=== PATIENT | female | born 1950 | race Caucasian/White ===

== ENCOUNTER 2022-03-15 10:42 | Emergency (ER) | payer MEDICARE, SELFPAY ==
[2022-03-15 10:52] VITALS: BP 177/94; PULSE 78; RESP 16; TEMP 36.7; O2SAT 95; BMI 28.3
[2022-03-15 11:00] VITALS: BP 158/91; PULSE 82; RESP 16; O2SAT 96
--- NOTE | 2022-03-15 11:11 | ED_ITS ---
HPI - Nausea/Vomiting/Diarrhea General Chief complaint: Diarrhea Stated complaint: diarrhea for 12 day Time Seen by Provider: 03/15/22 10:52 History of Present Illness HPI Narrative: This 71-year-old female comes in reporting diarrhea for the past 12 days. She states that she ate some [place] food and has had diarrhea since then. She denies having any nausea, vomiting, fever, dysuria, and abdominal pain. She states that she did have Clostridium difficile infection a 7 years ago after being on extended antibiotic treatment after a dilation of her esophagus that ruptured and caused an abscess. She has been doing well since then. She states that she is scheduled for another dilation this coming week. She feels that she is volume depleted. She has been taking food and liquid but has persistent brown color diarrhea. Related Data Home Medications Medication Instructions Recorded Confirmed multivitamin (Daily Multi-Vitamin 1 tab PO DAILY 03/15/22 03/15/22 tablet) omeprazole .ROUTE 03/15/22 Previous Rx's Medication Instructions Recorded diphenoxylate-atropine 2.5 1 tab PO DAILY #7 tabs 03/15/22 mg-0.025 mg tablet (Lomotil) Allergies Allergy/AdvReac Type Severity Reaction Status Date / Time Penicillins Allergy Mild Rash Verified 03/15/22 10:57 Review of Systems Status of ROS: Reports: 10 or more systems reviewed and unremarkable except as noted in History and below Narrative: Constitutional: No fevers, no weight gain or loss. Eyes: No discharge. No vision changes. HENT: No congestion, no sore throat, no ear pain. Cardiovascular: No chest pain, no palpitations. Respiratory: No shortness of breath, no wheezes, no cough. Gastrointestinal: No abdominal pain, no vomiting. Diarrhea as described above. Genitourinary: No dysuria, no hematuria. Musculoskeletal: Normal range of motion. Skin: No rashes, no pruritis. Neurological: No dizziness, weakness, sensory change, speech change. Endo/Heme/Allergies: No bruising or bleeding. No polydipsia. Pysch: no suicidality, no anxiety, no insomnia. All other systems reviewed and are negative. [facility] PFS Social History Smoking Status: Never smoker Do you use any of these nicotine containing products: None Second hand tobacco smoke exposure: No How often do you have a drink containing alcohol: never AUDIT-C Alcohol total score: 0 Non-prescribed substance use: denies use Exam Narrative: Exam Narrative: Constitutional: Well-developed, well-nourished, no acute distress. HEENT: Normocephalic, atraumatic. Neck: Normal range of motion. Nontender. Supple. Heart: Regular. No murmurs. Normal rate. Intact distal pulses. Lungs: Clear to auscultation. No chest discomfort. No wheezes, rhonchi, or rales. Abdomen: Normal bowel sounds. Nontender. No rebound tenderness. Genitalia: Deferred. Back: No midline tenderness. Normal range of motion. Extremities: Normal range of motion. No injury. Skin: Intact. No rash. Warm. No erythema or pallor. Neurologic: No altered sensation. No weakness. Alert and oriented. Psychiatric: No suicidality. No anxiety or depression. No insomnia. Nursing notes and vitals signs are reviewed. Const: Vital Signs, click to edit/add: Vital Signs - 24 hr 03/15/22 10:52 Temperature 98.0 F Pulse Rate [Right Pulse Oximeter] 78 Respiratory Rate 16 Blood Pressure [Le ft Upper Arm] 177/94 H Pulse Oximetry 95 Oxygen Delivery Me thod Room Air Course Vital Signs Vital signs: Initial Vital Signs Temperature 98.0 F 03/15/22 10:52 Temperature Source Temporal Artery Scan 03/15/22 10:52 Pulse Rate 78 03/15/22 10:52 Pulse Rhythm 03/15/22 10:52 Pulse Strength 3+ Normal 03/15/22 10:52 Respiratory Rate 16 03/15/22 10:52 Blood Pressure 177/94 H 03/15/22 10:52 Blood Pressure Mean 121 03/15/22 10:52 Blood Pressure Position Supine 03/15/22 10:52 Pulse Oximetry 95 03/15/22 10:52 Oxygen Delivery Method 03/15/22 10:52 Vital Signs Temperature 98.0 F 03/15/22 10:52 Pulse Rate 78 03/15/22 10:52 Respiratory Rate 16 03/15/22 10:52 Blood Pressure 177/94 H 03/15/22 10:52 Pulse Oximetry 95 03/15/22 10:52 Oxygen Delivery Method 03/15/22 10:52 Temperature 98.0 F 03/15/22 10:52 Pulse Rate 78 03/15/22 10:52 Respiratory Rate 16 03/15/22 10:52 Blood Pressure 177/94 H 03/15/22 10:52 Pulse Oximetry 95 03/15/22 10:52 Oxygen Delivery Method 03/15/22 10:52 MDM - Nausea/Vomiting/Diarrhea MDM Narrative Medical decision making narrative: This patient comes with diarrhea episodes over the past 12 days. She does not really have any other symptoms. An IV was established where she received a L of normal saline. Lab results returned with normal findings. A Clostridium difficile test is ordered but results are pending. It does not seem to be typical for this kind of infection. The patient has not used any anti diarrheal medicines so I encouraged use of Imodium as directed. I did provide a few tablets of Lomotil that can be used if needed for more persistent or severe diarrhea. I describe signs and symptoms that would indicate a need for return and re-evaluation. Lab Data Labs: Lab Results 03/15/22 03/15/22 Range/Units 11:28 11:28 WBC 5.81 (4.50-11.00) K/uL RBC 4.54 (4.00-5.20) m/uL Hgb 13.4 (12.0-16.0) gm/dL Hct 40.6 (33.0-51.0) % MCV 89 (80-100) fL MCH 30 (26-34) pg MCHC 33 (32-36) gm/dL RDW Coeff of Madhu 13.7 (11.5-15.5) % Plt Count 234 (140-440) K/uL Neut % (Auto) 57.1 (42.0-72.0) % Lymph % (Auto) 28.2 (20-44) % Hawkins % (Auto) 10.3 (0.0-11.0) % Eos % (Auto) 3.3 (0.0-7.0) % Baso % (Auto) 0.9 (0.0-3.0) % Neut # (Auto) 3.32 (1.7-7.0) K/uL Lymph # (Auto) 1.64 (0.90-2.90) K/uL Hawkins # (Auto) 0.60 (0.00-0.90) K/UL Eos # (Auto) 0.19 (0.00-0.50) K/uL Baso # (Auto) 0.05 (0.00-0.30) K/uL Abs Immat Gran (auto) 0.01 (0.00-0.30) K/uL Imm/Tot Granulo (auto) 0.2 % Sodium 143 (135-149) mmol/L Potassium 3.3 L (3.6-5.1) mmol/L Chloride 106 (96-114) mmol/L Carbon Dioxide 28 (20-32) mmol/L BUN 12 (7-30) mg/dL Creatinine 0.6 (0.5-1.5) mg/dL Estimated Creat Clear 46.43 Estimated GFR 96 ml/min Glucose 93 (60-115) mg/dL Calcium 9.4 (8.4-10.6) mg/dL Discharge Plan Discharge Clinical Impression: Diarrhea Patient Disposition: Home, Self-Care Condition: Stable Additional Instructions: Use medications as needed and directed. Follow up with MD or return if worsening. Prescriptions: New diphenoxylate-atropine [Lomotil] 2.5-0.025 mg tablet 1 tab PO DAILY Qty: 7 0RF No Action omeprazole .ROUTE multivitamin [Daily Multi-Vitamin] Tablet 1 tab PO DAILY Follow Up/Referrals: Provider,Not a Local [Primary Care Provider] - Stand Alone Forms: [employer] Info Instructions
[2022-03-15 11:35] LABS: Basophils Absolute Auto 0.05 K/uL (0.00-0.30); Basophils Percent Auto 0.9 % (0.0-3.0); Eosinophils Absolute Auto 0.19 K/uL (0.00-0.50); Eosinophils Percent Auto 3.3 % (0.0-7.0); Hematocrit 40.6 % (33.0-51.0); Hemoglobin* 13.4 gm/dL (12.0-16.0); Immature Granulocytes Abs Auto 0.01 K/uL (0.00-0.30); Immature Granulocytes Pct Auto 0.2 %; Lymphocytes Absolute Auto 1.64 K/uL (0.90-2.90); Lymphocytes Percent Auto 28.2 % (20-44); Mean Corpuscular HGB Conc 33 gm/dL (32-36); Mean Corpuscular Hemoglobin 30 pg (26-34); Mean Corpuscular Volume 89 fL (80-100); Monocytes Percent Auto 10.3 % (0.0-11.0); Neutrophils Absolute Auto 3.32 K/uL (1.7-7.0); Neutrophils Percent Auto 57.1 % (42.0-72.0); Platelet Count* 234 K/uL (140-440); RDW Coefficient of Variation % 13.7 % (11.5-15.5); Red Blood Count 4.54 m/uL (4.00-5.20); White Blood Count* 5.81 K/uL (4.50-11.00)
[2022-03-15] MEDS: 0.9 % SODIUM CHLORIDE 1000 ml 1,000 ML IV (11:43)
[2022-03-15 11:45] LABS: Slide Review Reflex No
[2022-03-15 11:48] LABS: Chloride* 106 mmol/L (96-114); Potassium* 3.3 mmol/L (3.6-5.1); Sodium* 143 mmol/L (135-149)
[2022-03-15 11:50] LABS: Blood Urea Nitrogen* 12 mg/dL (7-30); Carbon Dioxide* 28 mmol/L (20-32); Creatinine* 0.6 mg/dL (0.5-1.5); Est. Creatinine Clearance* 46.43; Estimated Glomerular Filt Rate 96 ml/min; Glucose* 93 mg/dL (60-115)
[2022-03-15 11:51] LABS: Calcium* 9.4 mg/dL (8.4-10.6)
[2022-03-15 12:00] VITALS: BP 165/92; PULSE 69; RESP 16; O2SAT 95
--- NOTE | 2022-03-17 15:02 | ED.NURSE ---
Pt called inquiring whether she should fish bait picker her prescription that was sent by and whether she should still bring a stool sample in. Pt informed she could bring a sample in at any time and could fish bait picker her rx that was sent to the pharmacy. Pt states she will try her rx first and then bring a stool sample if that does not work for her.
--- NOTE | 2022-03-25 16:00 | ED.NURSE ---
Patient called asking for stool testing results. C-diff noted to be positive. Dr. Gu in ED today, is reviewing. Dr. Gu has called patient with positive results and sent Vancomycin script to patient's preferred pharmacy. No further action needed.
== END 2022-03-15 13:27 | disposition home or self-care (01) ==
PROVIDERS: Emergency Provider Emergency Medicine Emergency Medical Services
DX: A04.72 Enterocolitis due to Clostridium difficile, not specified as recurrent (principal)
CPT/HCPCS: 36415; 80048; 85025; 87493; 96360; 96361; 99283; 99284; J7030

== ENCOUNTER 2022-03-21 13:35 | Outpatient (REF) | payer MEDICARE, SELFPAY ==
[2022-03-21 14:52] LABS: CDIFFEPI 027 PRESUMPTIVE NEGATIVE (Negative)
[2022-03-21 15:08] LABS: C.Difficile POSITIVE (Negative)
== END 2022-03-21 13:36 | disposition home or self-care (01) ==
LOC: NPINS 13:35
PROVIDERS: Visit Provider Emergency Medicine Emergency Medical Services
DX: R19.7 Diarrhea, unspecified (principal)
CPT/HCPCS: 87493